=== PATIENT | male | born 1955 | race Caucasian/White ===

== ENCOUNTER → 2022-05-11 08:38 | Outpatient (CLI) | payer MEDICARE, SELFPAY ==
--- NOTE | ~2022-05-11 | CT_ITS ---
EXAMINATION: CT abdomen pelvis w con DATE: 05/11/2022 09:08 INDICATION: Inguinal hernia TECHNIQUE: Computed tomography (CT) of the abdomen and pelvis was performed with 100 CC Omnipaque 350 intravenous contrast. Automated exposure control and iterative reconstruction technique were employe d. Exam dose: 571.52 mGy-cm total exam DLP. COMPARISON: None. FINDINGS: Approximately 4 millimeter lower lobe pulmonary nodule or localized consolidation (series 4 image 2), with mild surrounding groundglass infiltrate. Minimal infiltrate in the lateral segment of the middle lobe. Mild discoid atelectasis or scarring in the lower lobes, right greater than left. Cardiomegaly. No pericardial or pleural effusion. 6 mm right hepatic cyst but couple of additional probable smaller hepatic cysts are suggested. Status post cholecystectomy. Pancreatic duct measures up to 3 mm, within upper limits of normal. The bile ducts appear of normal c aliber in this postcholecystectomy patient. No pancreatic mass lesion or calcification is evident. Normal splenic size. Normal morphology of the adrenal glands. Probable 4.5 mm cyst at the upper pole of the left kidney. Several right renal cysts are noted includ ing 2 exophytic cysts at the superior aspect of the right kidney, measuring up to 1 cm. Prominent scar in the posterior superior right kidney No urinary tract calculus or hydroureteronephrosis. There is moderate diffuse thickening of the urina ry bladder wall, likely due to prostatomegaly. Some prostate calcifications are noted. There is atherosclerotic calcification but normal caliber of the abdominal aorta. No intraperitoneal or retroperitoneal or pelvic mass lesion or adenopathy or ascites. No inguinal hernia is evident. There is a prominent amount of fecal material throughout the colon. No bowel obstruction, bowel wall thickening, pneumatosis or intraperitoneal free air is detected. Chronic mild loss of height and anterior wedging at T12 and to a greater extent T11, which may be due to Scheuermann's disease or old compression fractures. There is prominent degenerative change at the apophyseal joints at L4-5 and L5-S1, with associated gr jose 1 anterolisthesis at L4-5. No suspicious osteolytic or osteoblastic lesions. IMPRESSION: No inguinal hernia is evident by CT examination Cardiomegaly Nonspecific 4 mm lower lobe pulmonary nodule or localized consolidation Minimal infiltrate in the middle lobe Probable hepatic cysts Occasional bilateral renal cysts Right renal scarring Prostatomegaly Reviewed, dictated and finalized at [facility]. Reviewed, dictated and finalized at [facility]. 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
== END ==
PROVIDERS: PCP Physician Assistant Medical; Visit Provider Physician Assistant Medical
DX: K40.90 Unilateral inguinal hernia, without obstruction or gangrene, not specified as recurrent (principal); R10.9 Unspecified abdominal pain; N28.1 Cyst of kidney, acquired; I51.7 Cardiomegaly; R91.8 Other nonspecific abnormal finding of lung field; N40.0 Benign prostatic hyperplasia without lower urinary tract symptoms
CPT/HCPCS: 74177; Q9967

== ENCOUNTER 2022-05-20 08:06 | Outpatient (CLI) | payer MEDICARE, SELFPAY | END 2022-05-20 08:07 | disposition home or self-care (01) | LOC: ANHSURGERY 08:16 | PROVIDERS: PCP Physician Assistant Medical; Visit Provider Surgery | DX: K40.90 Unilateral inguinal hernia, without obstruction or gangrene, not specified as recurrent (principal); Z01.818 Encounter for other preprocedural examination | CPT/HCPCS: 36415; 86850; 86900; 86901 ==

== ENCOUNTER 2022-05-25 01:00 | Day surgery (SDC) | payer MEDICARE, SELFPAY ==
[2022-05-19 10:07] VITALS: BMI 21.9
--- NOTE | 2022-05-19 10:14 | PC.NURSE ---
PRE-OP INSTRUCTIONS, PLEASE READ CAREFULLY Report to the Outpatient Waiting Room, entrance under the green pavilion located off [facility], at time _1000_ on date _05/25/22_. Planned Procedure Time: _1200_. Time changes happen often and if your time is changed the preop area will call you the afternoon before. - You and your visitor will be asked to self-screen and do not enter if you have any COVID symptoms. - Only one visitor is requested with a max of two and NO children visitors are allowed at this time. - The patient visitor may be requested to leave or wait in car when not with patient due to distancing restrictions. - A mask is optional within the hospital at this time. Patients may have clear liquids (water, carbonated beverages, clear teas, apple juice) until 3 hours prior to surgery (0900 AM) with a maximum of 20 ounces. - No food from midnight until time of surgery Take the following medications with a SIP of water the morning of surgery: N/A DO NOT STOP ANY OF YOUR OTHER PRESCRIPTION MEDICATIONS PRIOR TO SURGERY ?EXCEPT THE FOLLOWING Medications to discontinue per physician N/A Date to take last dose Please no make-up, nail swazi, hairspray, perfume, deodorant, or body powder the day of surgery. No jewelry (including any body piercings) or valuables the day of surgery, leave them at home. Please take a shower or bath the night before, or the morning of, surgery with an antibacterial soap. Wear comfortable, loose fitting clothing. - Jewelry must be removed prior to entering the operating room. Rings and piercings that are not removed may be cut off. - The hospital will not accept responsibility for valuables. - Please leave all valuables, including medications, at home the day of surgery. If you are going home after surgery, a licensed entry level truck driver must drive you home. - NO public transportation without another adult if you receive anesthesia. - We recommend that an adult stay with you for 24 hours following discharge. - We also recommend that you do not drive, make important decision, drink alcoholic beverages, or take any drugs that were not prescribed by your health care provider for at least 24 hours after your discharge time. Follow any additional instructions given to you from your surgeon. HIBICLENS SHOWER AM OF SURGERY If you or anyone in your household have experienced Covid symptoms in the past week, please notify your surgeon or the nurse liaison at the phone number below for possible testing. Telephone instructions given to _PATIENT_and asked if any additional questions and then verbalized understanding. Patient advised to call surgeon office or pre surgery nurse liaison [phone] if any additional questions.
[2022-05-25] VITALS (8 sets, daily range): BP systolic 94–132; BP diastolic 40–83; PULSE 64–88; RESP 16–20; TEMP 36.2–36.8; O2SAT 98–100
[2022-05-25] MEDS: LACTATED RINGERS 1,000 ML 30 ML IV CONT ×2 (11:00→14:47)
[2022-05-25] MEDS: KETOROLAC 15 MG/ML VIAL (*BKC) IV PUSH ×2 (11:29→14:17)
--- NOTE | 2022-05-25 11:31 | P.PNAN_ITS ---
Anes - Initial Pre Proc Eval Procedure: Operation Date: 05/25/22 12:00 Proposed Procedures p Robotic Assisted Laparoscopic Right Inguinal Hernia Repair with Mesh - Bhupinder Marie MD s Excision of Rupture Epidermal Cyst of Posterior Right Hip - Bhupinder Marie MD Date/Time: 05/25/22 11:31 Surgeon: Bhupinder Marie MD Pre Op Diagnosis: Reducable Rt Ing Hernia,Rt Hip Inclusion Cyst Patient Data Age: 66 Gender: M Height: 1.88 m Weight: 77.27 kg Allergies Allergy/AdvReac Type Severity Reaction Status Date / Time No Known Allergies Allergy Verified 05/25/22 11:32 Home Medications Medication Instructions Recorded Confirmed Type No Home Medications 05/05/22 05/19/22 History Patient hx anesthesia problems: none Family hx anesthesia problems: none Results Review: All pre-operative results and documents have been reviewed as part of the pre- operative evaluation. [facility] Past Medical History Medical History (Updated 05/13/22 @ 09:30 by Marianela Shaw) Environmental allergies Scoliosis deformity of spine Skin cancer skin CA excised from mid upper mid Surgical History Surgical History History of cholecystectomy Family History Family History Father Acute myocardial infarction Heart failure Sibling Asthma Social History Social History Smoking status: Never smoker Second hand tobacco smoke exposure: No Alcohol intake: current Drinks per week: 14 Substance use: never Substance use type: does not use Living arrangements: with family Spiritual care concerns: No Anes - Eval Final PreProcedure Day of Procedure 05/25/22 11:31 Patient weight: normal Heart: regular rate and rhythm Lungs: clear to auscultation Neurological: alert and oriented Last oral intake: >/= 8 hours ASA classification: II Emergent: no Anesthetic plan: proceed Anesthesia type and monitoring: general ETT and standard monitoring Results Review: All pre-operative results and documents have been reviewed as part of the pre- operative evaluation. Informed Consent: The patient's anesthetic plan and its attendant risks and benefits were discussed with the patient/family/POA. Questions were solicited and answers provided to the satisfaction of the patient/family/POA.
--- NOTE | 2022-05-25 11:45 | WPDHPUPDATE1 ---
History and Physical Update Update Date/Time: 05/25/22 11:45 History and Physical has been reviewed, including an updated exam of the patient. There are NO changes in the patient's condition. Risks, benefits, and alternatives have been discussed and questions answered. Patient agrees to proceed with procedure.
[2022-05-25] MEDS: ceFAZolin 2 GM/D5W 50 ML 2 GM/50 ML BAG IVPB (12:02)
[2022-05-25] MEDS: LIDO 1%/EPINEPHRINE 1:100,000 50 ML VIAL 20 ML INFILTRATE (13:06)
[2022-05-25] MEDS: BUPivacaine HCL 0.5% 10 ML AMP 20 ML INFILTRATE (13:07)
--- NOTE | 2022-05-25 14:43 | ECG_ITS ---
Measurements Intervals [place] Rate: 68 P: GA: 0 QRS: -51 QRSD: 98 T: -34 QT: 434 QTc: 463 Interpretive Statements ATRIAL FIBRILLATION LEFT AXIS DEVIATION INFERIOR INFARCT, AGE INDETERMINATE BASELINE ARTIFACT- II, V1-V3 ABNORMAL ECG NO PREVIOUS ECG AVAILABLE FOR COMPARISON Electronically Signed On 05-25-2022 15:06:12 CDT by Naeem Denton D.O.
--- NOTE | 2022-05-25 14:50 | W.PM.PROC2 ---
Procedure Note - Detailed Date of Procedure 05/25/22 Pre-op Diagnosis Reducable Rt Ing Hernia,Rt Hip Inclusion Cyst Post-op Diagnosis Same Procedure Performed Robotic assisted laparoscopic right femoral and indirect inguinal hernia repair with Bard 3D mid weight mesh Excision of right flank assist (2 X 1 X 0.5 cm) with 3.5cm intermediate layered wound closure. 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 CT scan showed evidence of right inguinal hernia with fatty tissue in the right inguinal canal. On physical examination he had evidence of a small right inguinal hernia with Valsalva. Findings Patient a ruptured inclusion cyst was not infected in the right hip region. He had both a right femoral hernia as well as an indirect right inguinal hernia. There was a small portion of omentum within the indirect right inguinal hernia. Description of Procedure After informed consent was obtained the patient was brought to the operating room where he was placed under general endotracheal anesthesia and then turned on the lateral decubitus position on operating table. The area the right flank and hip region was then prepped and draped in usual sterile fashion. Time-out was then performed correctly identifying the patient as well as procedure to be performed verifying the site marking. He was given Ancef for perioperative IV antibiotics. I then made a transverse elliptical incision a scalpel to incorporate the toscano of the cyst. Dissection carried deeply through the dermis of the skin with a scalpel and then electrocautery was used to completely excise around the subcutaneous tissues until the ellipse containing the cyst was completely removed. The this measured approximately 2cm in length by 1cm with by 0.5 cm depth. It was sent to pathology for examination. An intermediate layered wound closure during 3.5cm in length was performed utilizing interrupted 3-0 Vicryl sutures in the subcutaneous tissues. The skin edges were approximated with a running subcuticular 4-0 Monocryl suture. The incision was then cleaned and then skin glue was applied. We then re-prepped and draped the patient after turning him on to the supine position on the operating table. A time-out was then performed again verify the procedure to be performed verifying the right groin site marking. He was already given Ancef for perioperative IV antibiotics. I started the procedure by making a 5mm Optiview port in the left upper quadrant with a direct optical insertion. Once inside the abdomen insufflated to adequate pneumoperitoneum of 15mmHg of CO2. Looking down to the pelvis there was no evidence of a left inguinal hernia. There was evidence of a large indirect right inguinal hernia containing a small portion of the omentum. I then placed additional 8mm trocar ports across the mid abdomen region and then had the the [place]ita robot brought to the patient's bedside and then the robotic arms were docked to the robotic ports. Robotic instruments were then advanced into the abdomen under direct visualization. I then scrubbed out the procedure sent down at the console and started the dissection robotically. I started by making a peritoneal flap anterior and medial to the right anterior superior iliac spine. It was brought medially to the right median umbilical ligament. I then dissected in this preperitoneal plane and identified the inferior epigastric vessels. Medially I dissected down to the pubic tubercle and across the midline of the pubic symphysis. I dissected down into the space of Retzius for couple cm. This is all done with robotic hook cautery. I then proceeded to reduce the indirect inguinal hernia sac after says the omentum from the a hernia sac. Identified the vas deferens and testicular vessels the cord and preserved these with
--- NOTE | 2022-05-25 15:28 | SUR.PHASEI ---
Bella Mccrary CREDIT OFFICER with cardiology at patient bedside to assess patient and review 12 lead ekg
--- NOTE | 2022-05-25 15:39 | PM.CNCAR ---
Assessment and Plan Assessment and plan (1) Atrial fibrillation: Code(s): I48.91 - Unspecified atrial fibrillation Status: Acute Assessment and Plan: New onset atrial fibrillation recognized on telemetry during hernia repair procedure today. No history of atrial fibrillation. I explained the pathophysiology of atrial fibrillation and management strategies including rate control vs. rhythm control. He is rate controlled without any AV santa agents, so we will pursue a rate control strategy at this time. He is asymptomatic. His [id number] score is 1 - anticoagulation is not indicated. I offered full dose ASA as an option but he does not want to take more pills than he has to. OK to be discharged from surgical recovery area today. 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 History of Present Illness History of Present Illness Consult date/time: 05/25/22 15:39 Requesting physician: Bhupinder Marie MD Consult reason: atrial fibrillation Reason For Visit: Reducable Rt Ing Hernia,Rt Hip Inclusion Cyst Narrative: Mr. Dixon is a 66 year old male with no significant medical history who underwent outpatient robotic laparoscopic hernia repair today. During this procedure he was noted to be in atrial fibrillation on telemetry. EKG confirmed atrial fibrillation. He has no history of atrial fibrillation and denies any cardiac problems. Denies any palpitations, chest pain, shortness of breath. He remains in atrial fibrillation at the time of my exam, heart rate in the 70's. Review of Systems Review of Systems: All systems reviewed & are unremarkable except as noted in HPI and below PMFSH Past Medical History Medical History Environmental allergies Scoliosis deformity of spine Skin cancer skin CA excised from mid upper mid Surgical History Surgical History History of cholecystectomy Family History Family History Father Acute myocardial infarction Heart failure Sibling Asthma Social History Social History Smoking status: Never smoker Second hand tobacco smoke exposure: No Alcohol intake: current Drinks per week: 14 Substance use: never Substance use type: does not use Living arrangements: with family Spiritual care concerns: No Meds Home Medications and Allergies Home Medications Medication Instructions Recorded Confirmed Type oxycodone 5 mg tablet 5 mg PO Q6H PRN pain #10 tabs 05/25/22 Rx Allergies Allergy/AdvReac Type Severity Reaction Status Date / Time No Known Allergies Allergy Verified 05/25/22 11:32 Vital Signs Vital Signs - 24 hr 05/25/22 11:30 05/25/22 14:47 05/25/22 15:00 Temperature 36.8 C 36.2 C L Pulse Rate 76 64 68 Respiratory Rate 18 18 20 Blood Pressure 132/83 94/44 L 94/44 L Pulse Oximetry 99 100 100 Oxygen Delivery Room Air Simple Face Mask Simple Face Mask Oxygen Flow Rate 6 6 05/25/22 15:15 05/25/22 15:30 Temperature Pulse Rate 88 74 Respiratory Rate 19 16 Blood Pressure 97/40 L 101/61 Pulse Oximetry 100 98 Oxygen Delivery Simple Face Mask Room Air Oxygen Flow Rate 6 Exam Const: General: comfortable, no acute distress, alert and awake Orientation/consciousness: patient oriented x3 HENMT: Head: normal to inspection Eyes: General: appearance normal, both eyes and all related structures Pupils: Equal, round and reactive pupils present Neck: Neck: normal visual inspection, supple and no JVD Carotids: normal carotid upstroke Resp: Effort & Inspection: normal respiratory effort Auscultation: clear to auscultation bilaterally Cardio: Rate: regular rate Rhythm: abnormal rhythm irregularly irregular
== END 2022-05-25 16:41 | disposition home or self-care (01) ==
PROVIDERS: PCP Physician Assistant Medical; Visit Provider Surgery
PROC: 8E0Y4CZ Robotic Assisted Procedure of Lower Extremity, Percutaneous Endoscopic Approach (ICD-10-PCS; CPT 49650; principal; 2022-05-25 12:00)
PROC: (CPT 49650; 2022-05-25 12:00)
DX: K40.90 Unilateral inguinal hernia, without obstruction or gangrene, not specified as recurrent (principal); K41.90 Unilateral femoral hernia, without obstruction or gangrene, not specified as recurrent; I48.91 Unspecified atrial fibrillation; L92.8 Other granulomatous disorders of the skin and subcutaneous tissue
CPT/HCPCS: 49650; 11402; 12032; S2900; 88305; 88312; 93005; A9270; C1781; J0690; J1100; J1885; J2250; J2370; J2405; J2704; J2710; J3010; J7030; J7120